=== PATIENT | male | born 1960 | race Caucasian/White ===

== ENCOUNTER 2019-12-03 08:40 | Inpatient (IN) | payer SELFPAY ==
[2019-12-03] VITALS (45 sets, daily range): BP systolic 82–276; BP diastolic 29–265
[~2019-12-03] VITALS: Ht 165.1 cm; Wt 46.3 kg
[2019-12-03] MEDS ORDERED: NALOXONE HCL 1 MG/ML 2ML VIAL IV ONE (09:15)
[2019-12-03 09:25] LABS: BASOPHILS % 0.2 % (0.0-2.0); HEMATOCRIT. 33.9 % (42.0-52.0); HEMOGLOBIN. 11.4 g/dL (14.0-18.0); LYMPHOCYTES % 7.2 % (20.0-50.0); MEAN CORPUSCULAR HEMOGLOBIN 34.1 pg (28.0-32.0); MEAN PLATELET VOLUME 8.3 fl (7.4-10.4); MONOCYTES % 12.2 % (2.0-8.0); NEUTROPHILS % 80.4 % (40.0-76.0); PLATELET 200 x1000/uL (130-400); RED BLOOD CELL COUNT 3.35 mill/uL (4.7-6.1)
[2019-12-03 09:31] LABS: INR 1.1; PROTHROMBIN TIME 11.5 sec (9.6-11.0)
[2019-12-03 09:37] LABS: CHLORIDE 106 mEq/L (98-107)
[2019-12-03 09:42] LABS: ETHANOL BLOOD < 10 mg/dL
[2019-12-03] MEDS ORDERED: PROPOFOL 10MG/ML 100ML 100 ML IV ONE (09:45)
[2019-12-03] MEDS ORDERED: SUCCINYLCHOLINE CHLORIDE 200MG/10ML IV ONE ×2 (09:45→10:02)
[2019-12-03] MEDS ORDERED: LEVETIRACETAM 500MG PREMIX 100 ML IV ONE (09:45)
[2019-12-03 09:47] LABS: CLARITY URINE CLEAR (CLEAR); COLOR URINE ORANGE (YELLOW); KETONES URINE 1+ (NEGATIVE); LEUKOCYTE ESTERASE URINE TRACE (NEGATIVE); NITRITE URINE POSITIVE (NEGATIVE); OCCULT BLOOD URINE 1+ (NEGATIVE); PH URINE 5.5 (4.5-8.0); PROTEIN URINE 2+ (NEGATIVE); SPECIFIC GRAVITY URINE 1.029 (1.005-1.030)
[2019-12-03] MEDS ORDERED: SODIUM CHLORIDE 0.9% 10ML VIAL ONE (10:02)
[2019-12-03] MEDS ORDERED: ETOMIDATE 2MG/ML 10ML VIAL IV ONE ×2 (10:02→10:45)
[2019-12-03] MEDS ORDERED: VECURONIUM BROMIDE 10 MG/VIAL IV ONE ×2 (10:02→10:45)
[2019-12-03] MEDS ORDERED: THROMBIN (BOVINE) 5000 UNITS/VIAL TOP ONE (10:06)
[2019-12-03] MEDS ORDERED: LIDOCAINE HCL/EPINEPHRINE 1%-EPI 1:100,000 20 ML VIAL ONE (10:06)
[2019-12-03] MEDS ORDERED: BACITRACIN 15GM TUBE TOP ONE (10:06)
[2019-12-03] MEDS ORDERED: BACITRACIN 50,000 UNITS/VIAL ONE (10:07)
[2019-12-03 10:24] LABS: CREATINE KINASE 1794 IU/L (39-308)
[2019-12-03] MEDS ORDERED: CEFTRIAXONE 1 G PREMIX 50 ML IV ONE (10:30)
[2019-12-03] MEDS ORDERED: KCL 20MEQ/100ML PREMIX 100 ML IV ONE (10:30)
[2019-12-03] MEDS ORDERED: ROCURONIUM BROMIDE 10MG/ML VIAL 5ML IV ONE (10:36)
[2019-12-03] MEDS ORDERED: KCL 20MEQ/100ML PREMIX 100 ML IV NR ×2 (10:45→11:45)
[2019-12-03 10:46] LABS: *AMPHETAMINES SCREEN URINE NEGATIVE (NEGATIVE); *BARBITURATES SCREEN URINE NEGATIVE (NEGATIVE); *BENZODIAZEPINES SCREEN URINE NEGATIVE (NEGATIVE); *COCAINE SCREEN URINE NEGATIVE (NEGATIVE)
[2019-12-03 10:47] LABS: CANNABINOID URINE SCREEN NEGATIVE (NEGATIVE); METHADONE URINE SCREEN NEGATIVE (NEGATIVE); OPIATES URINE SCREEN NEGATIVE (NEGATIVE); PHENCYCLIDINE URINE SCREEN NEGATIVE (NEGATIVE)
[2019-12-03] MEDS ORDERED: MANNITOL 20% 500 ML IV ONE (11:04)
[2019-12-03] MEDS ORDERED: DEXAMETHASONE 4MG/ML 1ML VIAL ONE (11:06)
[2019-12-03] MEDS ORDERED: ONDANSETRON HCL 4MG/2ML INJ IV PRN ×2 (11:30→12:30)
[2019-12-03] MEDS ORDERED: ACETAMINOPHEN 325MG TABLET PO PRN (11:30)
[2019-12-03] MEDS ORDERED: LEVETIRACETAM 500 MG in SODIUM CHLORIDE 0.9% 100 ML IV SCH (11:30)
[2019-12-03] MEDS ORDERED: NICARDIPINE 100 MG in SODIUM CHLORIDE 0.9% 60 ML IV PRN (11:30)
[2019-12-03] MEDS ORDERED: FENTANYL CITRATE/PF 50MCG/ML 2ML VIAL ONE (11:32)
[2019-12-03] MEDS ORDERED: ALBUMIN HUMAN 12.5G/250ML (5%) IV ONE (11:53)
[2019-12-03] MEDS ORDERED: HYDROMORPHONE HCL/PF 2MG/ML CPJ IV PRN (12:30)
[2019-12-03] MEDS ORDERED: MORPHINE SULFATE 2 MG/ML CPJ (NOT FOR IM USE) IV PRN (12:30)
[2019-12-03 12:48] LABS: BG BASE EXCESS -3.5 mmol/L (-2.0-2.0); BG CARBOXYHEMOGLOBIN 0.3 % (0.5-1.5); BG DEOXYHEMOGLOBIN 2.1 % (0.0-5.0); BG FRACTION INSPIRED OXYGEN 75; BG HCO3 ACT 21.9 mmol/L (22.0-26.0); BG METHEMOGLOBIN 0.3 % (0.0-1.5); BG OXYGEN SATURATION 97.9 % (92.0-98.5); BG OXYHEMOGLOBIN 97.3 % (94.0-97.0); BG PH 7.345 (7.350-7.450); BG PO2 132.7 mmHg (75.0-100.0); BG SAMPLE SITE RIGHT RADIAL; BG TIDAL VOLUME(mL) 450 mL; BG VENT MODE VENT - A/C; BG VENT RATE 20 set
[2019-12-03] MEDS ORDERED: SODIUM CHLORIDE 0.9% 1,000 ML IV ONE (13:34)
[2019-12-03] MEDS ORDERED: HYDROMORPHONE PCA 10MG/50ML IV PRN (13:45)
[2019-12-03] MEDS ORDERED: ONDANSETRON INJ IV PRN (13:45)
[2019-12-03] MEDS ORDERED: DIPHENHYDRAMINE INJ IV PRN (13:45)
[2019-12-03] MEDS ORDERED: NALOXONE INJ IV PRN (13:45)
[2019-12-03] MEDS ORDERED: POTASSIUM CHLORIDE INJ 40 MEQ in DEXT 5% WATER 250 ML IV NR (14:00)
[2019-12-03] MEDS: DEXAMETHASONE 4MG/ML 1ML VIAL IV SCH ×2 (15:25→17:38)
[2019-12-03] MEDS: DEXT 5%/LACTATED RINGERS 1,000 ML IV SCH (16:00)
[2019-12-03] MEDS ORDERED: LEVETIRACETAM 500MG PREMIX 100 ML IV SCH (17:00)
[2019-12-03 17:12] LABS: HEMOGLOBIN 8.8 g/dL (14.0-18.0); MEAN CORPUSCULAR HEMOGLOBIN 34.7 pg (28.0-32.0); MEAN CORPUSCULAR VOLUME 102.7 fL (80.0-94.0); PLATELET 150 x1000/uL (130-400); RED BLOOD CELL COUNT 2.53 mill/uL (4.7-6.1); RED CELL DISTRIBUTION WIDTH 15.7 % (11.6-14.6)
[2019-12-03 17:23] LABS: CHLORIDE 115 mEq/L (98-107)
[2019-12-03] MEDS: LEVETIRACETAM 500MG PREMIX 100 ML IV SCH (21:34)
[2019-12-04] VITALS (80 sets, daily range): BP systolic 78–188; BP diastolic 49–183
[2019-12-04] MEDS: MORPHINE SULFATE 4 MG/ML CPJ (NOT FOR IM USE) IV PRN ×2 (00:10→12:39)
[2019-12-04] MEDS: DEXAMETHASONE 4MG/ML 1ML VIAL IV SCH ×3 (00:33→12:35)
[2019-12-04] MEDS ORDERED: ACETAMINOPHEN 650MG SUPP PR PRN (04:30)
[2019-12-04] MEDS ORDERED: NICARDIPINE 100 MG in SODIUM CHLORIDE 0.9% 60 ML IV PRN (06:15)
[2019-12-04 06:38] LABS: BASOPHILS % 0.1 % (0.0-2.0); HEMATOCRIT. 26.2 % (42.0-52.0); HEMOGLOBIN. 9.1 g/dL (14.0-18.0); LYMPHOCYTES % 7.7 % (20.0-50.0); MEAN CORPUSCULAR HEMOGLOBIN 35.3 pg (28.0-32.0); MEAN CORPUSCULAR VOLUME 101.9 fL (80.0-94.0); MEAN PLATELET VOLUME 8.9 fl (7.4-10.4); MONOCYTES % 8.8 % (2.0-8.0); NEUTROPHILS % 83.4 % (40.0-76.0); PLATELET 178 x1000/uL (130-400); RED BLOOD CELL COUNT 2.57 mill/uL (4.7-6.1); RED CELL DISTRIBUTION WIDTH 15.9 % (11.6-14.6)
[2019-12-04 06:56] LABS: CHLORIDE 118 mEq/L (98-107)
[2019-12-04 07:18] LABS: CREATINE KINASE 1266 IU/L (39-308)
[2019-12-04] MEDS ORDERED: MAGNESIUM 2 G PREMIX 50 ML IV NR ×2 (09:00→10:00)
[2019-12-04] MEDS: LEVETIRACETAM 500MG PREMIX 100 ML IV SCH ×2 (09:15→20:01)
[2019-12-04 09:49] LABS: BG BASE EXCESS -2.3 mmol/L (-2.0-2.0); BG CARBOXYHEMOGLOBIN 0.3 % (0.5-1.5); BG DEOXYHEMOGLOBIN 3.6 % (0.0-5.0); BG FRACTION INSPIRED OXYGEN 60; BG HCO3 ACT 19.9 mmol/L (22.0-26.0); BG METHEMOGLOBIN 0.3 % (0.0-1.5); BG OXYGEN SATURATION 96.4 % (92.0-98.5); BG OXYHEMOGLOBIN 95.8 % (94.0-97.0); BG PCO2 25.6 mmHg (35.0-45.0); BG PH 7.509 (7.350-7.450); BG PO2 86.6 mmHg (75.0-100.0); BG SAMPLE SITE LEFT RADIAL; BG TIDAL VOLUME(mL) 450 mL; BG TOTAL HEMOGLOBIN 9.2 g/dL (12.0-18.0); BG VENT MODE VENT - A/C; BG VENT RATE 20 set
[2019-12-04] MEDS ORDERED: POTASSIUM CHLORIDE INJ 40 MEQ in DEXT 5% WATER 250 ML IV NR (10:00)
[2019-12-04] MEDS ORDERED: CEFTRIAXONE 1 G PREMIX 50 ML IV SCH (12:00)
[2019-12-04] MEDS ORDERED: PANTOPRAZOLE SODIUM 40 MG/VIAL IV SCH (15:00)
[2019-12-04] MEDS: MORPHINE SULFATE 250 MG in DEXT 5% WATER 240 ML IV PRN (16:25)
[2019-12-04] MEDS ORDERED: LORAZEPAM 2MG/ML CPJ IV NR (17:12)
[2019-12-04] MEDS: DEXT 5%/LACTATED RINGERS 1,000 ML IV SCH (18:44)
[2019-12-05] VITALS (34 sets, daily range): BP systolic 83–115; BP diastolic 43–63
[2019-12-05] MEDS: MORPHINE SULFATE 250 MG in DEXT 5% WATER 240 ML IV PRN ×5 (01:23→23:20)
[2019-12-05] MEDS: LORAZEPAM 2MG/ML CPJ IV PRN (15:16)
[2019-12-06] VITALS: BP 87/52
[2019-12-06 04:00] VITALS: BP 94/50
[2019-12-06] MEDS: MORPHINE SULFATE 250 MG in DEXT 5% WATER 240 ML IV PRN ×4 (05:43→19:52)
[2019-12-06 08:16] VITALS: BP 90/56
[2019-12-06 10:16] LABS: BG CARBOXYHEMOGLOBIN 0.3 % (0.5-1.5); BG DEOXYHEMOGLOBIN 0.3 % (0.0-5.0); BG FRACTION INSPIRED OXYGEN 99.9; BG HCO3 ACT 23.8 mmol/L (22.0-26.0); BG METHEMOGLOBIN 0.6 % (0.0-1.5); BG OXYGEN SATURATION 99.7 % (92.0-98.5); BG OXYHEMOGLOBIN 98.8 % (94.0-97.0); BG PCO2 75.3 mmHg (35.0-45.0); BG PH 7.117 (7.350-7.450); BG PO2 512.6 mmHg (75.0-100.0); BG SAMPLE SITE RIGHT RADIAL; BG TOTAL HEMOGLOBIN 9.2 g/dL (12.0-18.0); BG VENT MODE MASK - NRB
[2019-12-06 11:28] VITALS: BP 102/71
[2019-12-06 16:07] VITALS: BP 112/68
[2019-12-06] MEDS: LORAZEPAM 2MG/ML CPJ IV PRN (19:12)
[2019-12-06 20:00] VITALS: BP 110/71
[2019-12-07] VITALS: BP 120/76
[2019-12-07 04:00] VITALS: BP 126/79
[2019-12-07] MEDS: MORPHINE SULFATE 250 MG in DEXT 5% WATER 240 ML IV PRN ×4 (04:05→20:32)
[2019-12-07 08:00] VITALS: BP 136/88
[2019-12-07] MEDS: LORAZEPAM 2MG/ML CPJ IV PRN (09:39)
[2019-12-07 12:00] VITALS: BP 117/67
[2019-12-07 16:00] VITALS: BP 145/85
[2019-12-07 20:00] VITALS: BP 140/91
[2019-12-08] VITALS: BP 142/73
[2019-12-08] MEDS: MORPHINE SULFATE 250 MG in DEXT 5% WATER 240 ML IV PRN ×3 (02:34→14:00)
[2019-12-08 04:00] VITALS: BP 125/73
[2019-12-08 08:00] VITALS: BP_SYST 125; BP_SYST 135; BP_DIAS 66; BP_DIAS 70
[2019-12-08 12:00] VITALS: BP 111/69
[2019-12-08 16:00] VITALS: BP 87/52
[2019-12-08 17:00] VITALS: BP 40/20
== END 2019-12-08 18:15 | disposition expired | DRG 710 ==
LOC: ER 08:40 → ORIP 10:22 → EDBEDREQ 10:26 → 5EST 14:49 → 6EST 12-05 08:10
PROVIDERS: ADMIT Internal Medicine; ATTEND Internal Medicine
PROC: 00C40ZZ Extirpation of Matter from Intracranial Subdural Space, Open Approach (ICD-10-PCS; principal; 2019-12-03)
PROC: 009600Z Drainage of Cerebral Ventricle with Drainage Device, Open Approach (ICD-10-PCS; 2019-12-03)
PROC: 0BH18EZ Insertion of Endotracheal Airway into Trachea, Via Natural or Artificial Opening Endoscopic (ICD-10-PCS; 2019-12-03)
PROC: 06HY33Z Insertion of Infusion Device into Lower Vein, Percutaneous Approach (ICD-10-PCS; 2019-12-03)
PROC: B54CZZA Ultrasonography of Left Lower Extremity Veins, Guidance (ICD-10-PCS; 2019-12-03)
PROC: 00U207Z Supplement Dura Mater with Autologous Tissue Substitute, Open Approach (ICD-10-PCS; 2019-12-03)
PROC: 4A103BD Monitoring of Intracranial Pressure, Percutaneous Approach (ICD-10-PCS; 2019-12-03)
PROC: 00H632Z Insertion of Monitoring Device into Cerebral Ventricle, Percutaneous Approach (ICD-10-PCS; 2019-12-03)
DX: A41.9 Sepsis, unspecified organism (principal); G93.6 Cerebral edema; J96.00 Acute respiratory failure, unspecified whether with hypoxia or hypercapnia; S06.5X0A Traumatic subdural hemorrhage without loss of consciousness, initial encounter; G93.40 Encephalopathy, unspecified; E44.1 Mild protein-calorie malnutrition; M62.82 Rhabdomyolysis; D50.0 Iron deficiency anemia secondary to blood loss (chronic); I25.10 Atherosclerotic heart disease of native coronary artery without angina pectoris; E87.6 Hypokalemia; N39.0 Urinary tract infection, site not specified; R74.0 Nonspecific elevation of levels of transaminase and lactic acid dehydrogenase [LDH]; R74.8 Abnormal levels of other serum enzymes; I42.9 Cardiomyopathy, unspecified; M54.30 Sciatica, unspecified side; I10 Essential (primary) hypertension; E78.5 Hyperlipidemia, unspecified; M10.9 Gout, unspecified; G47.33 Obstructive sleep apnea (adult) (pediatric); D72.821 Monocytosis (symptomatic); D72.810 Lymphocytopenia; M48.061 Spinal stenosis, lumbar region without neurogenic claudication; M47.9 Spondylosis, unspecified; Z51.5 Encounter for palliative care; Z66 Do not resuscitate; E11.9 Type 2 diabetes mellitus without complications; F10.10 Alcohol abuse, uncomplicated; Y90.9 Presence of alcohol in blood, level not specified; X58.XXXA Exposure to other specified factors, initial encounter; Y93.89 Activity, other specified; Y92.89 Other specified places as the place of occurrence of the external cause; Y99.8 Other external cause status; Z68.1 Body mass index [BMI] 19.9 or less, adult; Z95.1 Presence of aortocoronary bypass graft
CPT/HCPCS: 36415; 36600; 71045; 80048; 80053; 80061; 80305; 80307; 80320; 80329; 81003; 82140; 82375; 82550; 82553; 82805; 82962; 83605; 83735; 83880; 84145; 84484; 85025; 85027; 87077; 88304; 93005; 93306; 93970; 99291; C1713; J0330; J0696; J1100; J1953; J2060; J2270; J2274; J2704; J3010; J3475; J3480; J3490; J7050; J7060; L0172; P9041; G0480